=== PATIENT | female | born 1935 | race Caucasian/White ===

== ENCOUNTER 2018-09-29 07:10 | Day surgery (SDC) | payer MEDICARE, OTHER ==
[2018-09-27 14:55] LABS: BASOPHILS 0.3 % (0-2); EOSINOPHILS 1.6 % (0-7); HEMATOCRIT 38.9 % (36.0-48.0); HEMOGLOBIN 12.9 g/dL (12-16); IMMATURE GRANULOCYTES 0.2 % (0-5); LYMPHOCYTES 24.9 % (15-50); MCH 29.7 pg (26.0-34.0); MCHC 33.2 g/dL (31.0-37.0); MCV 89.4 fL (80.0-100.0); MONOCYTES 9.6 % (2-11); NEUTROPHILS 63.4 % (40-80); RBC 4.35 10x6/uL (4.00-5.40); RDW 13.4 % (11.5-14.5); WBC 8.7 10x3/uL (4.8-10.8)
[2018-09-27 14:57] LABS: PLATELET COUNT 312 10x3/uL (130-400)
[2018-09-27 15:23] LABS: ANION GAP 15.1 mmol/L (8-16); CALCIUM 9.4 mg/dL (8.5-10.1); POTASSIUM - SERUM 4.1 mmol/L (3.5-5.1)
[~2018-09-29] VITALS: Ht 154.9 cm; Wt 55.3 kg
[~2018-09-29 07:10] MED LIST: ALBUTEROL0.63 MG/3 INH; BROVANA15 MCG/2 M INH; CYCLOBENZAPRINE10 MG PO; FERROUS SULFAT325 MG PO; FLORAJEN3 CAPS460 MG PO; HYDROCHLOROTHIA25 MG PO; KENALOG 0.1 % 115 GM TOPICAL; LEVAQUIN500 MG PO; LIPITOR20 MG PO; MOBIC7.5 MG PO; MUCINEX600 MG PO; NEURONTIN 300300 MG PO; NEXIUM40 MG PO; NIFEDIPINE ER30 MG PO; PRINIVIL20 MG PO; PULMICORT0.5 MG/21 INH; REMERON15 MG PO; TESSALON PERLE100 MG PO; TOVIAZ4 MG PO; TRIAMTERENE-HCT1 TA1 PO; ULTRAM50 MG PO; VALIUM5 MG PO; VIBRAMYCIN 100100 MG PO
[2018-09-29 08:13] VITALS: BP 116/62; Ht 154.9 cm; Wt 55.3 kg
[2018-09-29] MEDS ORDERED: HYDROCODON-ACE1 EA10 PO (10:57)
--- NOTE | 2018-09-29 13:05 | NUR ---
PATIENT TRANSFERS TO WHEELCHAIR INDEPENDENTLY. NO DIZZINESS OR UNSTEADINESS WITH TRANSFERS. PATIENT REFUSES TO BEAR WEIGHT ON FOOT WITHOUT WALKING BOOT ON. PATIENT STATES SHE HAS A WALKING BOOT AT HOME SHE WILL PUT ON ONCE SHE GETS HOME. DR DIAZ STANDING IN DOORWAY OF ROOM STATING THAT PATIENT MAY PUT WEIGHT ON FOOT NOW BUT PATIENT DECLINES. PIV DC'D WITH TIP INTACT, PATIENT DRESSED IN PERSONAL CLOTHING. DISCHARGE INSTRUCTIONS REVIEWED [id number] PATIENT DISCHARGED HOME VIA WHEELCHAIR TO PRIVATE VEHICLE WITH FAMILY MEMBERS
--- NOTE | 2018-10-04 15:00 | OP ---
PATIENT NAME: BRI ARMSTRONG MEDICAL RECORD: [id number] :37 LOCATION:D.OPS ADMISSION DATE: SURGEON: LITO DIAZ MD DATE OF OPERATION: 09/29/2018 PREOPERATIVE DIAGNOSIS: Painful loose screw, right foot. POSTOPERATIVE DIAGNOSIS: Painful loose screw, right foot. PROCEDURE: Removal of screw under fluoroscopy. SURGEON: Lito Diaz MD ANESTHESIA: General. INTRAOPERATIVE COMPLICATIONS: None. SUMMARY OF PATHOLOGIC FINDINGS: The screw was completely loose in its entire cavity and quite frankly I can see that it was at all in the tibia based on multiplanar fluoroscopy as well as preoperative radiographs. INDICATIONS: An 83-year-old female who had attempted subtalar fusion. She had an excellent subtalar fusion. This was then augmented later, I think, by an attempt at a talotibial fusion. The talotibial fusion is obviously not taken. She has severe posterior forefoot valgus; however, the screw that was placed for an attempt at talotibial fusion had began to protrude through her Achilles tendon and radiograph showed that it was loose. OPERATIVE SUMMARY IN DETAIL: After obtaining the appropriate preoperative orthopedic surgery consent as well as anesthetic consultation, evaluation and clearance, the patient was brought to the operating room and placed on the operating table in supine position. After adequate general laryngeal mask airway was administered, the patient was placed in the left lateral decubitus position. All pressure points were well padded to include down leg peroneal pad as well as axillary roll. She was held firmly to the operating table using the vacuum pack suction system. The left lower extremity was prepped and draped in routine sterile fashion. Under fluoroscopic guidance, incision was made in the mid lateral plantar aspect of the foot. This was then carried down again under fluoroscopic position until the screw was engaged. The screw was then backed out. Please note that a small incision was made on the posterior side for irrigation purposes. After the wound was copiously irrigated, both incisions were closed with 3-0 Prolene. Sterile dressings were applied. The patient was awakened and taken to recovery room in stable condition. All final needle and sponge counts were correct. TRANSINT:[id number] Voice Confirmation ID: [id number] DOCUMENT ID: [id number] OPERATIVE REPORT [id number] BRI ARMSTRONG LITO DIAZ MD at 1500 CC: [id number] DICTATION DATE: 10/04/18 0856 SUPERVISING APPRAISER: 10/04/18 1046 [facility] [place] 09/29/18 [place] [id number] [facility] [place] [address]
== END 2018-09-29 13:10 | disposition home or self-care (01) ==
LOC: D.OPS 07:10 → D.PAN 16:15
PROVIDERS: Anesthesiology; ATTEND Orthopaedic Surgery
DX: T84.84XA Pain due to internal orthopedic prosthetic devices, implants and grafts, initial encounter (principal)